=== PATIENT | female | born 1985 | race Caucasian/White ===

== ENCOUNTER 2016-04-11 12:55 | Emergency (ER) | payer OTHER ==
[2016-04-11] MEDS ORDERED: NORMAL SALINE 1,000 ML IV ONE (13:51)
[2016-04-11] MEDS ORDERED: diphenhydrAMINE HCL 50 MG/ML VIAL IV ONE (13:51)
[2016-04-11] MEDS ORDERED: FAMOTIDINE 10 MG/ML VIAL IV ONE (13:54)
[2016-04-11] MEDS ORDERED: KETOROLAC TROMETHAMINE 30 MG/ML VIAL IV ONE (13:54)
[2016-04-11 14:14] LABS: Hematocrit 37.7 % (37.0-47.0); Hemoglobin 12.9 gm/dL (12.5-16.0); Mean Cell Volume 90.2 fl (78-100); Mean Corpuscular Hemoglobin 30.9 pg (27-31); Mean Corpuscular Hgb Conc 34.2 g/dl (32-36); Mean Platelet Volume 9.4 fl (6.0-9.5); Neutrophil # 3.6 K/mm3 (1.3-6.0); Neutrophil % 67.4 % (42-75.0); Platelet Count 233 K/mm3 (150-450); Red Blood Count 4.18 M/mm3 (4.2-5.4); Red Cell Distribution Width 11.9 % (11.5-14.0); White Blood Count 5.3 K/mm3 (4.0-10.5)
[2016-04-11 14:20] LABS: Anion Gap 10.8 mmol/L (6.8-13.8); BUN/Creatinine Ratio 7.7 (9.0-21.6); Calcium * 9.2 mg/dL (7.9-10.9); Carbon Dioxide 29.3 mmol/L (24-32.6); Estimated Creat Clear 48.2; Potassium 4.1 mmol/L (3.4-4.6)
[2016-04-11 15:49] VITALS: BP 125/73
--- NOTE | 2016-04-11 15:51 | ERNOTE ---
Headache ER HPI - Narrative Date of Service: 04/11/16 - General Presenting Symptoms: headache Time Seen by Provider: 04/11/16 14:03 Source: patient Exam Limitations: no limitations - Immun/Allergies/Home Medications Immunizations: IMMUNIZATION HX History of Influenza Vaccine No Allergies/Adverse Reactions: Allergies cephalexin monohydrate [From Keflex] Allergy (Mild, Verified 04/11/16 13:06) Other c diff Home Medications: HOME MEDICATIONS ALPRAZolam [Xanax] 0.5 mg PO BID PRN 11/26/15 [Last Taken Unknown] Desvenlafaxine Succinate [Pristiq] 50 mg PO DAILY 11/26/15 [Last Taken Unknown] Lamotrigine 25 mg PO DAILY 11/26/15 [Last Taken Unknown] Butalb/Acetaminophen/Caffeine [Fioricet] 1 tab PO TID #12 tablet 04/11/16 [Last Taken Unknown] Ondansetron [Zofran Odt] 4 mg PO Q8H PRN #10 tab 04/11/16 [Last Taken Unknown] Zolpidem Tartrate 10 mg PO HS 04/11/16 [Last Taken Unknown] - Pain Pain Score: 8 - History of Present Illness Narrative: Patient comes due to headache that is localized on the R side of the head. Patient at the moment with some photophobia. No LOC and no loss of sensation or double vision. Activity at onset: exertion Timing of Headache: gradual, still present Context Headache: Absent: new onset, CO exposure, tick bite, insect bite, sick contact, meningitis exposure, recent head injury < 24 hrs ago, recent head injury > 24 hrs, recent travel-outside [place] Quality: Present: achy, sharp, throbbing Severity Maximum: Present: severe Severity-Currently: Present: moderate Headache frequency: Present: occasional headaches, similar to previous headache. Absent: frequent headaches, chronic headaches Modifying Factors - (Improves): Reports: other - nothing Modifying Factors - (Worsens): Reports: exposure to light Associated Symptoms: Reports: nausea. Denies: denies symptoms, fever/chills, vomiting, sweating, nasal congestion, nasal drainage, facial pain, fatigue, weakness, numbness/tingling, vision changes, confusion, light-headedness, dizziness, loss of consciousness, seizures, neck pain/stiffness Exacerbated by:: Reports: light, noise, movement, position Prior Treament: Denies: recently seen Review of Systems - Review of Systems Constitutional: Absent: fever, chills, diaphoresis, weakness, fatigue, malaise, weight loss, fussy EYE: Present: other - photophobia. Absent: eye pain, eye discharge, double vision, vision changes, tearing Respiratory: Present: no symptoms reported Cardiology: Present: no symptoms reported Gastrointestinal/Abdominal: Present: no symptoms reported Genitourinary: Present: no symptoms reported Musculoskeletal: Present: no symptoms reported Skin: Present: no symptoms reported Neurological: Absent: anxiety, depressed, emotional problems, headache, seizure , weakness, numbness, tingling, tremors, pre-existing deficit Endocrine: Present: no symptoms reported Hematologic/Lymphatic: Absent: easy bruising, easy bleeding Psych: Present: no symptoms reported - Patient's Past Medical History Patient History - Medical: Anemia, Depression Patient History - Cardiac/Respiratory: No pertinent hx Patient History - Cancer: No Hx of Cancer Patient History - Surgical Procedures: T & A, Other - Family History Mother Family History - Medical: No pertinent hx Family History - Cardiac/Respiratory: Other Father Family History - Medical: No pertinent hx Family History - Cardiac/Respiratory: Hypertension Grandmother-Paternal Family History - Medical: No pertinent hx Family History - Cardiac/Respiratory: No pertinent hx - Social History Living Situations: spouse Smoking Status: Never smoker Have you smoked in the past 12 months: No Do you dip or chew tobacco: No Alcohol Use: none Drug Use: none Physical Exam - Physical Exam General Appearance: Present: wd/wn, alert, no apparent distress Eye Exam: Normal inspection: bilateral, PERRL: bilateral, EOMI: bilateral, Photophobia: bilateral Ears, Nose, Throat: Present: normal ENT inspection, hearing grossly normal, normal pharynx Neck: Present: normal inspection, nontender Respiratory: Present: no respiratory distress, normal breath sounds, no accessory muscle use, chest nontender, lungs clear Cardiovascular/Chest: Present: regular rate, rhythm, no murmur, normal peripheral pulses Peripheral Pulses: N=norm/S=strong/W=weak/B=bound/A=absent: Carotid (R): Normal , Carotid (L): Normal, Radial (R): Normal, Radial (L): Normal Gastrointestinal/Abdominal: Present: normal bowel sounds, nontender, nondistended, soft, no organomegaly Back Exam: Present: normal inspection, normal range of motion, no CVA tenderness , no vertebral tenderness Extremity Exam: Present: normal inspection, non-tender, no edema, normal range of motion Neurological Exam: Present: alert, oriented, normal mood/affect, no motor/ sensory deficits, 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 - Vital Signs Patient's Vital Signs:: I have reviewed the patient's vital signs. Vital Signs: Vital Signs 04/11/16 04/11/16 13:04 14:45 Temperature 36.2 C L Pulse Rate 99 74 Respiratory 14 14 Rate Blood Pressure 120/89 112/64 O2 Sat by Pulse 98 98 Oximetry - CT/Ultrasound CT/Ultrasound Narrative: CT show a Chiari Malformation. - Progress/Reassessment Chief Complaint: Headache Plan - Plan Plan: Patient Headache is improving. Patient with no neurologic deficits at this point. Patient with a negative CT for blood. Patient with a full mental status and no sign of infection. Patient will be given Tx and is welcome to return if no improvement. Departure Clinical Impression: Headache Qualifiers: Headache type: unspecified Headache chronicity pattern: episodic headache Intractability: not intractable Qualified Code(s): R51 - Headache Migraine Qualifiers: Migraine type: without aura Status migrainosus presence: without status migrainosus - Departure Disposition: Home self-care Condition: Stable Instructions: Chiari Malformation, Recurrent Migraine Headache, [id number] Prescriptions: Butalb/Acetaminophen/Caffeine [Fioricet] 1 tab PO TID #12 tablet Ondansetron [Zofran Odt] 4 mg PO Q8H PRN #10 tab PRN Reason: Nausea And Vomiting
== END 2016-04-11 16:13 | disposition home or self-care (01) ==
LOC: ER 12:55
DX: G43.909 Migraine, unspecified, not intractable, without status migrainosus (principal)

== ENCOUNTER 2016-09-14 13:42 | Emergency (ER) | payer OTHER ==
[2016-09-14 14:11] LABS: Hemoglobin 12.2 gm/dL (12.5-16.0); Mean Cell Volume 88.8 fl (78-100); Mean Corpuscular Hgb Conc 34.9 g/dl (32-36); Mean Platelet Volume 9.9 fl (6.0-9.5); Neutrophil # 5.6 K/mm3 (1.3-6.0); Neutrophil % 73.4 % (42-75.0); Platelet Count 191 K/mm3 (150-450); Red Blood Count 3.94 M/mm3 (4.2-5.4); Red Cell Distribution Width 12.3 % (11.5-14.0); White Blood Count 7.6 K/mm3 (4.0-10.5)
[2016-09-14] MEDS ORDERED: ONDANSETRON HCL/PF 2 MG/ML VIAL IV ONE (14:32)
[2016-09-14] MEDS ORDERED: NORMAL SALINE 1,000 ML IV ONE (14:32)
[2016-09-14 14:39] LABS: Monoscreen Negative (NEGATIVE)
[2016-09-14] MEDS ORDERED: ONDANSETRON HCL/PF 2 MG/ML VIAL ONE (14:42)
--- NOTE | 2016-09-14 14:45 | ERNOTE ---
Medical Problem HPI - Narrative Date of Service: 09/14/16 - General Chief Complaint: Nausea/Vomiting Time Seen by Provider: 09/14/16 14:09 Source: patient, family Exam Limitations: no limitations - Immun/Allergies/Home Medications Immunizations: IMMUNIZATION HX Immunizations Up to Date Yes History of Influenza Vaccine No Allergies/Adverse Reactions: Allergies cephalexin monohydrate [From Keflex] Allergy (Mild, Verified 09/14/16 13:54) Other c diff Home Medications: HOME MEDICATIONS ALPRAZolam [Xanax] 0.5 mg PO TID PRN 11/26/15 [Last Taken Unknown] Desvenlafaxine Succinate [Pristiq] 50 mg PO DAILY 11/26/15 [Last Taken Unknown] lamoTRIgine [Lamotrigine] 25 mg PO DAILY 11/26/15 [Last Taken Unknown] Zolpidem Tartrate 10 mg PO HS 04/11/16 [Last Taken Unknown] SUMAtriptan SUCCINATE [Sumatriptan Succinate] 50 mg PO 09/14/16 [Last Taken Unknown] Sulfamethoxazole/Trimethoprim [Bactrim Ds] 1 tab PO BID #28 tab 09/14/16 [Last Taken Unknown] Topiramate [Trokendi Xr] 25 mg PO DAILY 09/14/16 [Last Taken Unknown] - History of Present History Narrative: Pt. comes in with c/o nausea, fatigue and malaise for 18 hours. Pt. denies any injury, SOB, CP, recent illness, fever, cough, sinus congestion, but does state that she has found ticks crawling on her and has multiple insect bites from mosquitos. Pt. denies any prehospital treatment alleviaiting or aggravating factors. Review of Systems - Review of Systems Constitutional: Present: weakness, fatigue, malaise. Absent: fever, chills EYE: Present: no symptoms reported ENT: Present: no symptoms reported Respiratory: Present: no symptoms reported. Absent: shortness of breath, cough , wheezing Cardiology: Present: no symptoms reported. Absent: chest pain, palpitations, edema Gastrointestinal/Abdominal: Present: nausea. Absent: vomiting, diarrhea, abdominal pain Genitourinary: Present: no symptoms reported Musculoskeletal: Present: muscle pain - generalized aching. Absent: back pain, muscle stiffness, neck pain, joint pain Skin: Present: no symptoms reported. Absent: rash, lesions, lumps, change in color, change in hair/nails Neurological: Present: no symptoms reported. Absent: headache, dizziness/light- headedness, numbness, tingling Endocrine: Present: no symptoms reported Hematologic/Lymphatic: Present: no symptoms reported All Other Systems: All systems neg except as marked - Patient's Past Medical History Patient History - Medical: Anemia, Depression Patient History - Cardiac/Respiratory: No pertinent hx Patient History - Cancer: No Hx of Cancer Patient History - Surgical Procedures: T & A, Other Patient History - Other: None - Family History Mother Family History - Medical: No pertinent hx Family History - Cardiac/Respiratory: Other Father Family History - Medical: No pertinent hx Family History - Cardiac/Respiratory: Hypertension Grandmother-Paternal Family History - Medical: No pertinent hx Family History - Cardiac/Respiratory: No pertinent hx - Social History Living Situations: spouse Abuse History: No History of abuse Psych History: Hx of Anxiety, Hx of Depression Smoking Status: Never smoker Alcohol Use: none Drug Use: none - Immunizations Immunizations Up to Date: Yes History of Influenza Vaccine: No Physical Exam - Physical Exam General Appearance: Present: wd/wn, alert, no apparent distress Eye Exam: Normal inspection: bilateral, PERRL: bilateral, EOMI: bilateral Ears, Nose, Throat: Present: normal ENT inspection, normal pharynx Neck: Present: normal inspection, nontender. Absent: lymphadenopathy (R), lymphadenopathy (L) Respiratory: Present: no respiratory distress, normal breath sounds, no accessory muscle use, chest nontender, lungs clear Cardiovascular/Chest: Present: regular rate, rhythm, no murmur, normal peripheral pulses Gastrointestinal/Abdominal: Present: normal bowel sounds, nontender, nondistended, soft, no organomegaly Back Exam: Present: normal inspection, normal range of motion, no CVA tenderness , no vertebral tenderness Extremity Exam: Present: normal inspection, non-tender, normal range of motion, no edema Neurological Exam: Present: alert, oriented, normal mood/affect, no motor/ sensory deficits, 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 has dehydration and luekocytes and nitrates will treat for UTI. - Results and Orders Patient's Lab Results:: I have reviewed the patient's lab results. - Vital Signs Patient's Vital Signs:: I have reviewed the patient's vital signs. Vital Signs: Vital Signs 09/14/16 13:52 Temperature 36.8 C Pulse Rate 103 H Respiratory 12 Rate Blood Pressure 125/57 O2 Sat by Pulse 98 Oximetry - Progress/Reassessment Chief Complaint: Nausea/Vomiting Progress:: Improved Departure - Departure Clinical Impression: Dehydration, mild UTI (urinary tract infection) Qualifiers: Urinary tract infection type: acute cystitis Hematuria presence: with hematuria Qualified Code(s): N30.01 - Acute cystitis with hematuria Disposition: Home self-care Condition: Good Instructions: Urinary Tract Infection, Adult, [id number], Dehydration, Adult , [id number] Additional Instructions: Please follow up with primary provider in 2-3 days. Referrals: Sharla Rojas FNP [Primary Care Provider] - Prescriptions: Sulfamethoxazole/Trimethoprim [Bactrim Ds] 1 tab PO BID #28 tab
[2016-09-14 14:55] LABS: Albumin * 3.5 gm/dl (3.4-5.0); Anion Gap 16.5 mmol/L (6.8-13.8); BUN/Creatinine Ratio 9.6 (9.0-21.6); Bilirubin, Total 0.3 mg/dL (0.0-1.1); Ca. Corrected For Albumin 8.7 mg/dL (8.4-10.2); Calcium * 8.6 mg/dL (7.9-10.9); Carbon Dioxide 20.4 mmol/L (24-32.6); Potassium 3.9 mmol/L (3.4-4.6); Total Protein 7.4 gm/dL (6.2-8.2)
[2016-09-14 15:52] LABS: Urine Bilirubin Negative (NEGATIVE); Urine Blood 25 /ul (NEGATIVE); Urine Ketone Negative (NEGATIVE); Urine Protein Negative (NEGATIVE); Urine Specific Gravity 1.015 SP.GR. (1.005-1.010); Urine Urobilinogen Normal (NORMAL)
[2016-09-14 16:07] LABS: Urine Nitrite Positive (NEGATIVE)
[2016-09-14 16:08] LABS: Urine Amorphous Sediment Few - 1+ (NONE-FEW); Urine Appearance Clear; Urine Bacteria 4+; Urine Color Yellow
[2016-09-14 17:12] VITALS: BP 110/74
[2016-09-17 09:49] LABS: 18KD (IGG) Band NON-REACTIVE; 23KD (IGG) Band NON-REACTIVE; 28KD (IgG) Band NON-REACTIVE; 30KD (IgG) Band NON-REACTIVE; 39KD (IgG) Band NON-REACTIVE; 39KD (IgM) Band NON-REACTIVE; 41KD (IgG) Band NON-REACTIVE; 45KD (IgG) Band NON-REACTIVE; 58KD (IgG) Band NON-REACTIVE; 66KD (IgG) Band NON-REACTIVE; 93KD (IgG) Band NON-REACTIVE; B burgdorferi IgM WB NEGATIVE (NEGATIVE); B.burgdorferi Ab (IgG) WB NEGATIVE (NEGATIVE)
[2016-09-17 12:45] LABS: 41KD (IgM) Band NON-REACTIVE
== END 2016-09-14 17:07 | disposition home or self-care (01) ==
LOC: ER 13:42
DX: E86.0 Dehydration (principal); N30.01 Acute cystitis with hematuria
CPT/HCPCS: 36415; 80053; 81001; 84703; 85025; 86308; 86617; 86788; 86789; 87077; 87086; 87186; 96360; 99284; J2405